=== PATIENT | female | born 1985 ===

== ENCOUNTER 2018-05-13 11:13 | Day surgery (SDC) | payer SELFPAY ==
[2018-05-06 07:54] VITALS: BMI 33.5
[2018-05-13] MEDS ORDERED: Propofol 10 mg/ml Inj (20 ML) ONE (12:33)
[2018-05-13] MEDS ORDERED: Succinylcholine Chloride 20 mg/ml Syr (5 ml) IV ONE (12:34)
[2018-05-13] MEDS ORDERED: Rocuronium 10 mg/ml (5 ml) ONE ×2 (12:34→13:42)
[2018-05-13] MEDS ORDERED: Lidocaine 4% (Laryng-O-Jet) Kit MM ONE (12:34)
[2018-05-13] MEDS ORDERED: Lactated Ringer's 1,000 ML IV ONE (12:40)
[2018-05-13] MEDS ORDERED: Midazolam 2 MG/2 ML VIAL ONE (13:11)
[2018-05-13] MEDS ORDERED: Dexamethasone 4 mg/1 ml ONE (13:13)
--- NOTE | 2018-05-13 13:25 | CP.SDSHP ---
Same Day Surgery H & P - History Proposed Procedure: Laparoscopic possible open Cholecystectomy Pre-Op Diagnosis: Symptomatic Cholelithiasis - Previous Medical/Surgical History Comments: No significant past medical history. Does not take any medications at home Previous Surgical History: PSH: - Allergies Allergies: Allergies No Known Allergies Allergy (Verified 05/06/18 07:54) - Physical Exam General Appearance: Well Developed NAD Vital Signs: Vital Signs 05/13/18 12:08 Temperature 98.4 F Pulse Rate 70 Respiratory 20 Rate Blood Pressure 107/39 L O2 Sat by Pulse 97 Oximetry Mental Status: Alert & Oriented x3 Neuro: WNL Heart: WNL Lungs: WNL GI: Other (Tenderness in RUQ to deep palpation) - {Optional Preform as Required} Abdomen: Other (tenderness to deep palpation in RUQ) - Impression Impression: 33F w/ symptomatic cholelithiasis, intermittent episodes of nausea and vomiting, presents to [facility] for cholecystectomy Pt. Evaluated Today:Candidate for Anesthesia & Procedure: Yes - Date & Time Date: 05/13/18 Time: 13:25 Short Stay Discharge - Short Stay Discharge Admitting Diagnosis/Reason for Visit: K80.20 Disposition: HOME/ ROUTINE Referrals: Avni Solomon MD [Primary Care Provider] - 7days Additional Instructions (Diet, Activity): Can shower tomorrow. do not soak incisions in bath tub. There is glue on top of the incisions, will fall off on its own. No heavy lifting greater than 15-20lbs for the first 4 to 6 weeks. If fever greater than 100.4 take over the counter tylenol. if fever persists go to the ER. No food restrictions. Can eat anything you'd like. follow up with Dr. Solomon in clinic in 1 week. Progress Note/Discharge Note with Instructions: Dermabond/glue covering the incisions. Can shower tomorrow. No heavy lifting greater than 15-20lbs. Follow up with Dr. Solomon in 1 week. No food or dietary restrictions.
[2018-05-13] MEDS ORDERED: Neostigmine 1:1000 (1 mg/ml) Inj ONE (14:06)
--- NOTE | 2018-05-13 14:58 | PCM.SURG1 ---
Surgeon's Initial Post Op Note - Surgeon's Notes Surgeon: Dr. Solomon Electronic Operator: Perfecto PGY3, PGY2 Type of Anesthesia: General Endo Pre-Operative Diagnosis: Symptomatic Cholelithiasis Operative Findings: Multiple small stones. For details see op note Post-Operative Diagnosis: As above Operation Performed: Laparoscopic Cholecystectomy Specimen/Specimens Removed: Gallbladder Estimated Blood Loss: EBL {In ML}: 10 Drains Used: No Drains Post-Op Condition: Good Date of Surgery/Procedure: 05/13/18 (Dictation #: [id number]) Time of Surgery/Procedure: 14:58
[2018-05-13] MEDS ORDERED: Oxycodone/Acetaminophen 5/325 mg Tab PO ONE (14:59)
[2018-05-13] MEDS ORDERED: Lactated Ringer's 1,000 ML IV SCH (15:00)
[2018-05-13] MEDS: HYDROmorphone 0.5 mg/0.5 ml ISec IVP PRN ×2 (15:15→15:40)
[2018-05-13 15:39] VITALS: RESP 18
[2018-05-13 18:56] VITALS: BP 129/81; PULSE 75; TEMP 97.7; O2SAT 97
--- NOTE | 2018-05-14 04:02 | OP ---
PROCEDURE DATE: 05/13/2018 SURGEON: Avni Solomon MD ASSISTANTS: Valentín Grove DO, PGY-3 and Quan Warner DO, PGY-2 ANESTHESIOLOGIST: Antony Vergara MD ESTIMATED BLOOD LOSS: 5 mL. PREOPERATIVE DIAGNOSIS: Symptomatic cholelithiasis. POSTOPERATIVE DIAGNOSIS: Symptomatic cholelithiasis. PROCEDURE: Laparoscopic cholecystectomy. INDICATIONS: This is a 33-year-old female who developed right upper quadrant pain. Further workup on ultrasound, she was found to have cholelithiasis with a normal common bile duct. The patient has been having right upper quadrant pain for approximately two months. The patient was elected to undergo a laparoscopic cholecystectomy, possible open. Appropriate consent was obtained after explaining all the risks and benefits of this procedure. DESCRIPTION OF PROCEDURE: The patient was brought into the operating room and placed in supine position. General anesthesia was then induced. Time-out was taken verifying correct patient, procedure, and position. The abdomen was prepped and draped in the usual sterile fashion using chlorhexidine. A semilunar skin incision was made superior to the umbilicus. A Veress needle approach was used. The fascia was elevated and the Veress needle was inserted. Proper position was confirmed by aspiration and saline meniscus test. It was appropriately flushed. The abdomen was then insufflated with carbon dioxide to a pressure of 15 mmHg. The patient tolerated the insufflation well. A 12-mm bladed trocar was then inserted. The laparoscope was then inserted into the abdomen and inspected. No injuries were noted from the initial trocar placement. Additional trocars were then placed at the following positions. A 10-mm bladed trocar in the epigastrium to the right and two 5-mm trocars along the right costal margin 2 fingerbreadths below the costal margin. The abdomen was inspected and no abnormalities were noted. The table was placed in reverse Trendelenburg with the right side up. Adhesions and omentum on the gallbladder were taken down. The dome of the gallbladder was then grasped with atraumatic grasper and passed through the lateral port and retracted over the dome of the liver. The infundibulum was also grasped with an atraumatic grasper through the most lateral port. This maneuver then exposed Calot's triangle. The peritoneum overlying the gallbladder infundibulum was incised and dissected through using a [place]. The cystic duct was then identified traveling superiorly and noted to go directly into the gallbladder. Appropriate dissection was made with a [place] to be able to visualize and completely identify the cystic duct. Subsequently, it was doubly clipped inferiorly and superiorly one clip and divided close to the gallbladder using Endo Anoop. Further dissection was made medially identifying the cystic artery. Appropriate dissection was further maintained and appropriately identified, and the artery was doubly clipped and incised with Endo Anoop. Careful inspection was noted and clips were in appropriate place. One clip was placed just in terms for confirmation purposes. There was no bleeding of bile or stones noted at this time. The gallbladder was then dissected from its peritoneal attachments using electrocautery. During dissection, the gallbladder was being removed from the liver bed. The gallbladder was entered and was noted to have multiple small stones. This was appropriately grasped and then the dissection of the gallbladder off the liver bed continued and contained stones were removed using an endoscopic retrieval bag. Once the gallbladder was completely taken off, the camera was placed through the subxiphoid incision and the gallbladder was placed in the EndoCatch bag and removed from the umbilical port. Attention was taken back towards the liver bed. The area was copiously irrigated and to make sure only clear fluid was seen. Stones were appropriately retrieved. Secondary trocars were removed under direct visualization. No bleeding was noted. The laparoscope was withdrawn through the subxiphoid port with no damage noted. The abdomen was allowed to completely collapse. The fascia at the umbilical port was closed with a 0 Vicryl on a UR6 in a [id number] fashion. The reminder of the sites were closed with a 4-0 Monocryl and Dermabond was placed over the top. The patient tolerated the procedure well and was taken to the postanesthesia care unit in stable condition. The patient was appropriately extubated. All counts were correct at the end of the case. Dr. Solomon was present and participated in all aspects for this case. Quan Warner DO Avni Solomon MD [facility] # [id number]
== END 2018-05-13 19:20 | disposition home or self-care (01) ==
LOC: H.OPSURG 11:13
PROVIDERS: ATTEND Specialist
DX: K80.20 Calculus of gallbladder without cholecystitis without obstruction (principal)
CPT/HCPCS: 47562; 88304; J0131; J0690; J1100; J1170; J2001; J2250; J2405; J2704; J2710; J2765; J3010; J7120